=== PATIENT | male | born 1975 | race Caucasian/White ===

== ENCOUNTER 2017-04-06 14:15 | Emergency (ER) | payer OTHER ==
[~2017-04-06] VITALS: Ht 185.4 cm; Wt 76.1 kg
[2017-04-06 14:20] VITALS: TEMP 36.9; Ht 185.4 cm; Wt 76.1 kg
[2017-04-06] MEDS ORDERED: OXYCODONE/ACETAMINOPHEN 5-325 TAB PO ONE (14:45)
--- NOTE | 2017-04-06 15:09 | DIAGNOSTIC IMAGING REPORT ---
R SHOULDER MIN 2 VIEWS ROUTINE CLINICAL HISTORY: Fall. COMPARISON: None FINDINGS: Alignment of the right acromioclavicular and glenohumeral joints is anatomic. There is an acute comminuted mildly displaced right humeral head fracture that involves the greater tuberosity. A few associated small bone fragments are noted. No additional fractures are identified on this exam. IMPRESSION: Acute comminuted mildly displaced right humeral head fracture that involves the greater tuberosity with several associated bone fragments. Electronically signed by: Yonatan Emmanuel M.D. 04/06/2017 3:08 PM Dictated Date/Time: 04/06/2017 3:04 PM
--- NOTE | 2017-04-06 15:26 | DIAGNOSTIC IMAGING REPORT ---
HEAD CT NONCONTRAST CT DOSE: 1812.13 mGy.cm HISTORY: fall TECHNIQUE: Multiaxial CT images of the head were performed without the use of intravenous contrast. Automated exposure control was utilized for this study. A dose lowering technique was utilized adhering to the principles of ALARA. Comparison: None. Findings: Partial passive the right ethmoid air cells. The mastoid air cells are clear. Comminuted and mildly displaced left zygomatic arch fracture. Mild right frontal scalp swelling. The calvarium and skull base are intact. The ventricles and sulci are within normal limits. There is no mass, hematoma, midline shift, or acute infarct. Impression: No acute intracranial abnormality. Comminuted and displaced left zygomatic arch fracture. Electronically signed by: Virgil Bruner M.D. 04/06/2017 3:24 PM Dictated Date/Time: 04/06/2017 3:21 PM
--- NOTE | 2017-04-06 15:29 | DIAGNOSTIC IMAGING REPORT ---
CERVICAL SPINE CT CT DOSE: HISTORY: fall TECHNIQUE: Multiaxial CT images of the cervical spine were performed and reformatted in the sagittal and coronal plane without the use of contrast. A dose lowering technique was utilized adhering to the principles of ALARA. COMPARISON: None. FINDINGS: No fractures. No subluxation. Prevertebral soft tissues and the C1-C2 interval are intact. No pneumothorax. Moderate to space narrowing at C5-C6. A 5 cm right apical bleb. IMPRESSION: No fractures within the cervical spine. Electronically signed by: Virgil Bruner M.D. 04/06/2017 3:28 PM Dictated Date/Time: 04/06/2017 3:24 PM
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
--- NOTE | 2017-04-06 15:44 | DIAGNOSTIC IMAGING REPORT ---
CT OF THE CHEST WITHOUT IV CONTRAST CLINICAL HISTORY: Fall. COMPARISON STUDY: No previous studies for comparison. TECHNIQUE: Axial images of the chest were obtained without IV contrast. Images were reviewed in the axial, sagittal, and coronal planes. IV contrast was not administered for this examination. A dose lowering technique was utilized adhering to the principles of ALARA. FINDINGS: No mediastinal hematoma is identified. Evaluation of the thoracic aorta is suboptimal on this exam but there is no evidence for thoracic aortic injury on this study. The size of the heart is normal. There is no pericardial effusion. There is no pneumothorax or contusion. There is moderate upper lobe predominant emphysema. Note is made of an acute nondisplaced fracture of the anterior left fifth rib. There is also a nondisplaced acute to subacute transverse sternal fracture. There is an acute comminuted, displaced fracture involving the right humeral head with multiple associated bone fragments. This involves a greater tuberosity. The upper abdomen is unremarkable on this unenhanced examination. IMPRESSION: 1. Acute comminuted mildly displaced right humeral head fracture with multiple associated bone fragments. This involves the greater tuberosity. 2. Acute nondisplaced anterior left fifth rib fracture. No pneumothorax. 3. Nondisplaced sternal fracture which is likely acute. 4. Moderate upper lobe predominant emphysema. Electronically signed by: Yonatan Emmanuel M.D. 04/06/2017 3:42 PM Dictated Date/Time: 04/06/2017 3:31 PM
[2017-04-06 15:55] VITALS: BP 126/86; PULSE 83; O2SAT 98
[2017-04-06] MEDS ORDERED: ACET-749 PO (16:02)
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
== END 2017-04-06 16:20 ==
LOC: C.EDB 14:17
DX: S42.291A Other displaced fracture of upper end of right humerus, initial encounter for closed fracture (principal); S43.014A Anterior dislocation of right humerus, initial encounter; S02.40FA Zygomatic fracture, left side, initial encounter for closed fracture; S22.32XA Fracture of one rib, left side, initial encounter for closed fracture; S22.20XA Unspecified fracture of sternum, initial encounter for closed fracture; W18.39XA Other fall on same level, initial encounter; Y92.149 Unspecified place in prison as the place of occurrence of the external cause; Z87.891 Personal history of nicotine dependence